=== PATIENT | female | born 1995 | race Hispanic/Latino ===

== ENCOUNTER 2024-12-06 07:21 | Day surgery (SDC) | payer BC ==
[~2024-12-06] VITALS: Ht 160 cm; Wt 76.7 kg
[2024-12-06] VITALS (9 sets, daily range): BP systolic 92–119; BP diastolic 64–84; PULSE 60–86; RESP 14–16; TEMP 97–97.9
[2024-12-06] MEDS: 0.9%NACL 1000ML 1,000 ML IV ONE (09:40)
[2024-12-06] MEDS ORDERED: BOTULINUM TOXIN TYPE A 100 UNITS/VIAL INJ ONE (10:00)
[2024-12-06] MEDS ORDERED: proPOFol 10 MG/ML 20ML VIAL IV ONE (10:01)
[2024-12-06] MEDS ORDERED: LIDOCAINE HCL 400MG/20ML VIAL ONE (10:02)
== END 2024-12-06 11:30 | disposition home or self-care (01) ==
LOC: DAH 07:21 → ENDO 07:21
PROVIDERS: ATTEND Surgery
DX: K22.0 Achalasia of cardia (principal); R13.10 Dysphagia, unspecified; K29.70 Gastritis, unspecified, without bleeding; K22.89 Other specified disease of esophagus; K21.9 Gastro-esophageal reflux disease without esophagitis; Z79.899 Other long term (current) drug therapy
CPT/HCPCS: 43236; 81025; J0585; J3490; J7030; J2704; A4215; A4223; A4222; A4221; A4663; A4606